=== PATIENT | male | born 1960 | race Caucasian/White ===

== ENCOUNTER 2024-10-20 08:00 | Outpatient (AMB) | payer BC, SELFPAY ==
--- OUTSIDE RECORDS SUMMARY | 2024-10-20 08:03 | XMS_ITS | Clinical Summary ---
Author Organization [facility] Address [address] [place] [address] Care Team Providers Care Talent Associate Name Role Phone Unavailable Primary Care Provider Unavailabl e Social History Tobacco Use Types Packs/Day Years Used Date Smoking Tobacco: Never Assessed Sex and Gender Information Value Date Recorded Sex Assigned at Not on file Legal Sex Male 12:28 AM EDT Gender Identity Not on file Sexual Orientation Not on file Plan of Treatment Health Maintenance Due Date Last Done Comments Hepatitis C Screening 1960 DTaP/Tdap/Td (1 - Tdap) 01/02/1976 Pneumococcal 50+ years (1 of 1 - PCV) 01/02/2008 Zoster (Shingrix) (1 of 2) 01/02/2008 COVID-19 Vaccine ( - 2023-2 5 season) 2024 Influenza (#1) 2024 RSV (1 - 1-dose 75+ series) 2033 Abdominal Aorta Imaging Discontinued HPV Vaccine Aged Out No longer eligi ble based on patient's age to complete this topic Hep A Aged Out No longer eligi ble based on patient's age to complete this topic Hep B Aged Out No longer eligi ble based on patient's age to complete this topic Hib Aged Out No longer eligi ble based on patient's age to complete this topic Meningococcal ACWY Aged Out No longer eligible based on patient's age to complete this topic Zoster (Zostavax) Discontinued
--- NOTE | 2024-10-20 08:05 | A.OFFPC_ITS ---
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 Allergies No Known Allergies Allergy (Verified 10/20/24 08:08) Medication List - Last Reconciled 10/20/24 by Ольга Millard MD amlodipine 10 mg PO DAILY atorvastatin 20 mg PO DAILY hydrochlorothiazide 25 mg PO DAILY lisinopril 30 mg PO DAILY omeprazole 20 mg PO DAILY Tobacco use date assessed: 10/20/24 Fall risk assessment: No Falls in past year Last assessed Fall Risk: 10/20/24 Dental Screening Dental Screen Date: 10/20/24 Did you have a dental visit in the last 12 months?: No Did you have a dental problem in the last 6 months where you did not have access to dental care?: No Was dental information given to patient?: Patient declined HPI 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 Past medical history includes; HTN and hyperlipid, stable on meds PFSH Medical History (Updated 10/20/24 @ 16:33 by Ольга Millard MD) Annual physical exam Smoker HTN (hypertension) Hyperlipidemia Colonoscopy refused Surgical History (Updated 10/20/24 @ 08:47 by Ольга Millard MD) History of ankle surgery Family History (Updated 10/20/24 @ 08:50 by Ольга Millard MD) Father Heart attack, Onset Age: 65 Mother No problems noted. Social History (Updated 10/20/24 @ 08:51 by Ольга Millard MD) Household Members Other:: lives with girlfriend, 2 adult children, 2 grandchildren, retired Housing: House Patient Tobacco Use Status: Current everyday Tobacco user Tobacco use type: Cigarette Cigarette Packs Per Day: 1 Cigarettes Per Day: 20 e-Cigarette/Vaping Use: Never Used service: Yes Current occupational status: employed and retired Cognitive needs: No Hearing needs: No Vision needs: Yes Questionnaire PHQ-9 Over the last 2 weeks, how often have you been bothered by any of the following problems? 1. Little interest or pleasure in doing things: not at all 2. Feeling down, depressed, or hopeless: not at all 3. Trouble falling or staying asleep, or sleeping too much: not at all 4. Feeling tired or having little energy: not at all 5. Poor appetite or overeating: not at all 6. Feeling bad about yourself - or that you are a failure or have let yourself or your family down: not at all 7. Trouble concentrating on things, such as reading the newspaper or watching television: not at all 8. Moving or speaking so slowly that other people could have noticed. Or the opposite - being so fidgety or restless that you have been moving around a lot more than usual: not at all 9. Thoughts that you would be better off or of hurting yourself in some way: not at all Total score: 0 Depression Screening Interpretation: Negative Depression Screening Done: Yes 40496 - PHQ-9 Billing: Yes Source: Developed by Drs. Malcom Lee, Cara Meraz, Joel Watson and colleagues, with an educational zandra from [employer]. Thrive Questionnaire Date Thrive assessed: 10/20/24 I am a: Patient What is your living situation today?: I have a steady place to live Within the past 12 months, did the food you bought not last and you didn't have the money to get more?: Never true Within the past 12 months, did you worry whether your food would run out before you got money to buy more?: Never true Do you have trouble paying for medicines?: No Do you have trouble getting transportation to medical appointments?: No Do you have trouble paying your heating and electricity bill?: No Do you have trouble taking care of your child, family member or friend?: No Do you have trouble with day-to-day activities such as bathing, preparing meals, shopping, managing finances, etc.?: No Are you currently unemployed and looking for a job?: Yes Are you interested in more education?: No Please select the resources that you would like help with: None Currently or been in a relationship where the following occur: No concerns reported THRIVE Score: 0 AUDIT C Alcohol Use Questionnaire (AUDIT-C) 1. How often do you have a drink containing alcohol?: 2-3 times a week 2. How many drinks containing alcohol do you have on a typical day when you are drinking?: 7 to 9 3. How often do you have six or more drinks on one occasion?: Weekly Total Score: 9 DARIN-7 AMB Questionnaire DARIN-7 Date DARIN - 7 assessed: 10/20/24 Feeling nervous, anxious, or on edge: 0 = Not at all Not being able to stop or control worryin = Not at all Worrying too much about different things: 0 = Not at all Trouble relaxin = Not at all Being so restless that it is hard to sit still: 0 = Not at all Becoming easily annoyed or irritable: 0 = Not at all Feeling afraid as if something awful might happen: 0 = Not at all Total DARIN-7 score (0-4 normal; 5-9 mild; 10-14 moderate; 15-21 severe): 0 Source: Developed by Drs. Malcom Lee, Cara Meraz, Joel Watson and colleagues, with an educational zandra from [employer]. DARIN-7 Assessment Billing DARIN-7 Assessment Tool: DARIN-7 Assessment 83838 Review of Systems Const All systems reviewed & are unremarkable except as noted in HPI and below Reports no additional complaints Eyes Reports no additional complaints ENT Reports no additional complaints Card Reports no additional complaints Resp Reports no additional complaints GI Reports no additional complaints Reports no additional complaints Physical exam (Primary Care) Vital Signs: Last Vital Signs Temp 98.2 F 10/20/24 08:08 Pulse 93 10/20/24 08:08 Resp 20 10/20/24 08:08 BP 122/82 10/20/24 08:08 Pulse Ox 98 10/20/24 08:08 Oxygen Delivery Method Room Air 10/20/24 08:08 BMI result Body Mass Index 28.7 Tobacco/Smoking Status: Tobacco use Status Tobacco use date assessed 10/20/24 10/20/24 08:16 Patient Tobacco Use Status Current everyday Tobacco 10/20/24 08:51 Tobacco use type Cigarette 10/20/24 08:51 e-Cigarette/Vaping Use Never Used 10/20/24 08:51 PHQ-9: PHQ-9 Score PHQ-9: Total score 0 10/20/24 08:52 Depression Screening Interpretation: Negative Thrive Assessment: Date of Thrive Assessment Date Thrive assessed 10/20/24 10/20/24 08:16 Currently or been in a relationship where the following occur: No concerns reported Const General: no acute distress HENMT Head: Yes normal to inspection Ears: hearing grossly normal bilaterally Face and sinus: Yes normal facial exam Mouth: Normal oral and palatal mucosa present Throat: Yes posterior oropharynx normal Eyes General: appearance normal, both eyes and all related structures Neck Neck: Yes no lymphadenopathy and Yes supple Resp Effort & Inspection: normal respiratory effort Auscultation: clear to auscultation bilaterally Cardio Rhythm: regular rhythm Heart sounds: S1 normal heart sound present and S2 normal heart sound present GI Inspection: Yes normal to inspection Palpation (GI): Soft to palpation Percussion: Yes normal to percussion Auscultation: normal bowel sounds Coding Level of Care Code New Pt Prev Care >65yr (36252) Diagnoses HTN (hypertension) I10 Hyperlipidemia E78.5 Annual physical exam Z00.00 Smoker F17.200 Additional Codes DARIN-7 Assessment Billing - DARIN-7 Assessment Tool: DARIN-7 Assessment 10871 ([id number]) PHQ-9 - 64509 - PHQ-9 Billing: Yes ([id number]) Assessment & Plan Assessment & Plan (1) HTN (hypertension): Code(s): I10 - Essential (primary) hypertension Category: Medical Plan: Continue amlodipine hydrochlorothiazide and lisinopril, patient will have a fasting blood work today (2) Hyperlipidemia: Code(s): E78.5 - Hyperlipidemia, unspecified Category: Medical Plan: Continue statin (3) Annual physical exam: Code(s): Z00.00 - Encounter for general adult medical examination without abnormal findings Category: Medical Plan: Well-balanced diet regular physical activity discussed with the patient (4) Smoker: Comment: 1 PPD since 10 yr old, in Lung ca screen at [facility] . last 08/2024 Code(s): F17.200 - Nicotine dependence, unspecified, uncomplicated Category: Social Hx Plan: Tobacco quitting discussed with the patient he is not interested, patient will return in 6 months Orders: Orders PSA,Total (Free>4and<10) Today E78.5 - Hyperlipidemia, unspecified, I10 - Essential (primary) hypertension Comprehensive [place]. Panel Fast Today E78.5 - Hyperlipidemia, unspecified, I10 - Essential (primary) hypertension Complete Blood Count Auto Diff Today E78.5 - Hyperlipidemia, unspecified, I10 - Essential (primary) hypertension Lipid Panel Today E78.5 - Hyperlipidemia, unspecified, I10 - Essential (primary) hypertension UA w Microscopic Today E78.5 - Hyperlipidemia, unspecified, I10 - Essential (primary) hypertension
[2024-10-20 08:08] VITALS: BP 122/82; PULSE 93; RESP 20; TEMP 36.8; O2SAT 98; BMI 28.7
== END 2024-10-20 09:01 | disposition home or self-care (01) ==
PROVIDERS: Visit Provider Internal Medicine
DX: I10 Essential (primary) hypertension (principal); E78.5 Hyperlipidemia, unspecified; Z00.00 Encounter for general adult medical examination without abnormal findings; F17.200 Nicotine dependence, unspecified, uncomplicated

== ENCOUNTER 2024-10-20 08:00 | Outpatient (REF) | payer BC, SELFPAY ==
[2024-10-20 13:24] LABS: MANUAL DIFF FLAG NO
[2024-10-20 13:34] LABS: Basophils Absolute Auto 0.1 X10*3/uL (0.0-0.2); Basophils Percent Auto 0.8 % (0-2); Eosinophils Percent Auto 0.4 % (0-4); Hematocrit 41.9 % (42.0-52.0); Hemoglobin 14.9 g/dl (14.0-18.0); Imm Gran Abs Auto 0.03 X10*3/uL (0.00-0.03); Imm Gran Pct Auto 0.4 % (0.0-0.4); Lymphocytes Absolute Auto 1.9 X10*3/uL (1.2-4.9); Lymphocytes Percent Auto 25.2 % (20-40); Mean Corpuscular HGB Conc 35.6 g/dl (31.0-36.0); Mean Corpuscular Hemoglobin 33.3 pg (27.0-33.0); Mean Corpuscular Volume 93.7 fL (80.0-98.0); Mean Platelet Volume 8.8 fL (9.4-12.4); Monocytes Absolute Auto 1.2 X10*3/uL (0.1-1.2); Monocytes Percent Auto 16.1 % (2-11); Neutrophils Absolute Auto 4.2 x10*3/uL (2.0-8.3); Neutrophils Percent Auto 57.1 % (45-73); Platelet Count 487 X10*3/uL (160-400); Red Blood Count 4.47 X10*6/uL (4.60-5.80); Red Cell Distribution Width 13.4 % (11.0-16.0); White Blood Count 7.4 X10*3/uL (4.8-10.8)
[2024-10-20 13:50] LABS: Alanine Aminotransferase 45 U/L (0-40); Albumin Level 4.5 g/dL (3.5-5.0); Alkaline Phosphatase 72 U/L (39-117); Anion Gap 15 (12-20); Aspartate Amino Transferase 54 U/L (5-37); Bilirubin Total 0.7 mg/dL (0.0-1.0); Blood Urea Nitrogen 6 mg/dL (9-16); Calcium 9.6 mg/dL (8.4-10.2); Carbon Dioxide 24 mmol/L (22-29); Chloride 96 mmol/L (96-108); Cholesterol 136 mg/dL (<200); Estimated Glomerular Filt Rate > 60; Glucose Fasting 81 mg/dL (60-99); HDL Cholesterol 69 mg/dL (>40); LDL Cholesterol Calculated 58 mg/dL (<100); Potassium 4.1 mmol/L (3.3-5.1); Sodium 131 mmol/L (135-145); Total Protein 7.9 g/dL (6.5-8.0); Triglycerides 48 mg/dL (<150)
[2024-10-20 14:10] LABS: Appearance Urine Clear; Color Urine Yellow; Glucose Urine UA Negative (Negative); Leukocyte Esterase Urine Negative (Negative); Nitrite Urine Negative (Negative); Urine Blood Negative (Negative); Urine Ketones Negative (Negative); Urine Protein Negative (Neg-Trace)
[2024-10-20 14:17] LABS: PSA,Total (Free>4and<10) 4.15 ng/mL (0.00-4.00)
[2024-10-20 14:40] LABS: Bacteria Urine None Seen (None Seen); Hyaline Casts Urine 0-2 /LPF (0-2); RBC Urine 0-2 /HPF (0-2); Squamous Epithelial Cell Urine 0-2 /HPF (0-2); WBC Urine 0-5 /HPF (0-5)
[2024-10-21 12:29] LABS: Free Prostate Spec Ag 0.4 ng/mL; Percent Free Prostate Spec Ag 12 % (calc) (>25); Prostate Specific Ag Total 3.4 ng/mL (< OR = 4.0)
== END 2024-10-20 08:01 | disposition home or self-care (01) ==
LOC: HO.HMGCLDS 08:00
PROVIDERS: PCP Internal Medicine; Visit Provider Internal Medicine
DX: Z00.00 Encounter for general adult medical examination without abnormal findings (principal); I10 Essential (primary) hypertension; E78.5 Hyperlipidemia, unspecified; F17.210 Nicotine dependence, cigarettes, uncomplicated; Z79.899 Other long term (current) drug therapy; Z12.5 Encounter for screening for malignant neoplasm of prostate
CPT/HCPCS: 36415; 80053; 80061; 81001; 84153; 84154; 85025; 96127

== ENCOUNTER 2025-01-11 07:55 | Outpatient (AMB) | payer MEDICARE, BC, SELFPAY ==
--- OUTSIDE RECORDS SUMMARY | 2025-01-11 07:59 | XMS_ITS | Clinical Summary ---
Author Organization [facility] Address [address] [place] [address] Care Team Providers Care Icebox Worker Name Role Phone Unavailable Primary Care Provider [...] - 2023-2 5 season) 2024 Influenza (#1) 2025 RSV (1 - 1-dose 75+ series) 2033 Abdominal Aorta Imaging Discontinued HPV Vaccine (No Doses Required) Completed Hep A Aged Out No longer eligi [...]
--- OUTSIDE RECORDS SUMMARY | 2025-01-11 07:59 | XMS_ITS | Clinical Summary ---
Author Organization [facility] [address] [facility] Address [address] [place] [address] Phone Care Team Providers Care Traveling Operator Name Role Phone Milana Timmons MD Primary Care Provider [phone] Allergies No known active allergies Medications cyanocobalamin (VITAMIN B-12) 100 mcg tablet Take 0.5 tablets (50 mcg total) by mouth 1 (one) time each day. Active hydroCHLOROthiazide (HYDRODIURIL) 25 mg tabletIndications:E ssential (primary) hypertension TAKE 1 TABLET BY MOUTH EVERY DAY 90 tablet 2 4 Active amLODIPine (NORVASC) 10 mg tabletIndications:E ssential (primary) hypertension TAKE 1 TABLET BY MOUTH EVERY DAY 90 tablet 2 4 Active lisinopriL (PRINIVIL,ZESTRIL) 30 mg tabletIndications:H TN (hypertension), benign Take 1 tablet (30 mg total) by mouth 1 (one) time each day. 90 tablet 2 4 Active atorvastatin (LIPITOR) 20 mg tabletIndications:H yperlipidemia, unspecified hyperlipidemia type Take 1 tablet (20 mg total) by mouth at bedtime. 90 tablet 2 4 Active omeprazole (PriLOSEC) [address] capsuleIndications: Gastroesophageal reflux disease, unspecified whether esophagitis present Take 1 capsule (20 mg total) by mouth 1 (one) time each day. 90 capsule 2 4 Active Active Problems Problem Noted Date Diagnosed Date Vitamin D deficiency 02/19/2022 Pulmonary nodules 06/21/2021 Overview (03/10/2024): LDCT 06/21/2021 Hyperlipidemia 03/03/2020 Overview (03/10/2024): ASCVD 18--started lipitor Macrocytosis without anemia 04/28/2019 Overview (03/10/2024): Will get Vit b12 levels Ankle arthritis 01/04/2019 Tobacco use disorder 06/30/2013 GERD (gastroesophageal reflux disease) 3 ETOH abuse 12/22/2009 HTN (hypertension), benign 04/03/2009 Immunizations Name Administration Dates Next Due COVID-19 (Moderna/Spikevax) 12yo and older 02/13/2023 Influenza Quadravalent, 0.5m l (Fluad) 65yo and older 02/08/2024 Influenza Quadravalent, MDCK , 0.5ml, preservative free (Flucelvax) 6mo and older 02/04/2022,02/10/2020 Influenza trivalent, 0.5mL ( Fluad) 65yo and older 01/19/2024,02/12/2023 Influenza trivalent, 0.5mL, preservative free (Fluarix; FluLaval; Fluzone) ages 6mo and older (Afluria) 3 years and older 02/02/2021,02/10/2019,03/09/2017,03/24 Influenza, Unspecified 02/14/2022,05/09/2021, Moderna (age 6mo & older) Bi valent, COVID-19, 0.5 mL or 0.25 mL dosage 04/01/2022 Cambly SARS-CoV-2 COVID-19, mRNA, LNP-S, preservative free 04/01/2022 Pneumococcal conjugate 20 va lent (Prevnar 20, PCV 20) 2mo and older 10/23/2023 Pneumococcal polysaccharide 23 valent (Pneumovax 23) 2yo and older 05/09/2021,02/02/2021 Td Tetanus diptheria (Tdvax) 7yo and older 04/24/2023 Tdap Tetanus diptheria acell ular pertussis (Boostrix; Adacel) 7yo and older 12/25/2012 Zoster recombinant (Shingrix ) 19yo and older 05/09/2021,04/06/2021,02/02/2021 Surgical History Surgery Date Site/Laterality Comments ANKLE SURGERY Bilateral PROCEDURE: HISTORICAL ANKLE SURGERY; COMMENT: right fusion, left replacement Medical History Medical History Date Comments Tobacco use disorder DX:Tobacco use disorder Ankle fracture - DX:Ankle fractur e; COMMENT: both sides, surgery in the past Fracture, finger DX:Fracture, fi nger; COMMENT: right 3rd Essential hypertension DX:Essent ial hypertension Pulmonary nodules 06/21/2021 DX:Pulmonary n odules; COMMENT: LDCT 06/21/2021 Family History Medical History Relation Name Comments Heart failure Father Relation Name Status Comments Brother Alive Father (Age 62) chf Mother Alive htn, anxiety Sister Alive Social History Tobacco Use Types Packs/Day Years Used Date Smoking Tobacco: Every Day Cigarettes Smokeless Tobacco: Never Tobacco Cessation:Ready to Q uit: Not Asked; Counseling Given: Not Answered Alcohol Use Standard Drinks/Week Comments Yes 25 (1 standard drink = 0.6 oz pu re alcohol) Sex and Gender Information Value Date Recorded Sex Assigned at Male 08/17/2024 2:49 PM EDT Legal Sex Male 9:49 AM EST Gender Identity Not on file Sexual Orientation Not on file Obstetrics History Last Filed Vital Signs Vital Sign Reading Time Taken Comments Blood Pressure 130/76 04/26/2024 8:29 AM EST Pulse 96 04/26/2024 8:29 AM EST Temperature 36.7 C (98 F) 04/26/2024 8:29 AM EST Respiratory Rate - - Oxygen Saturation - - Inhaled Oxygen Concentration - - Weight 91.9 kg (202 lb 9.6 oz) 04/26/2024 8:29 A M EST Height 177.8 cm (5' 10 ) 04/26/2024 8:29 AM EST Body Mass Index 29.07 04/26/2024 8:29 AM EST Plan of Treatment Health Maintenance Due Date Last Done Comments Hepatitis A Vaccines (1 of 2 - Risk 2-dose series) 1979 Colorectal Cancer Screening: Stool Based Tests (FOBT/FIT) 05/04/2022 Medicare Annual Wellness Visit 05/04/2022 Social Influencers of Health Screening 05/04/2022 Falls Risk Assessment 2023 Depression Screening 05/26/2024 10/23/2023 COVID-19 Vaccine ( season) 2024 02/08/2024, 02/03/2024, 02/13/2023, Additional history exists Hypertension/CHF/CAD Annual BMP Blood Test 10/22/2024 10/23/2023, 10/23/2023 Influenza Vaccine (#1) 2025 , 01/19/2024, 02/12/2023, Additional history exists Lung Cancer Screening (Low Dose CT) 08/18/2025 08/18/2024, 08/13/2023, 06/24/2022, Additional history exists Cholesterol Screening (Lipid Panel) 10/22/2028 10/23/2023, 10/23/2023 RSV Immunization Adult Patients (1 - 1-dose 75+ series) 2033 DTaP,Tdap,and Td Vaccines (3 - Td or Tdap) 04/24/2033 04/24/2023, 12/25/2012 Hepatitis C Screening Completed 12/25/2012 Zoster Vaccines Completed 05/09/2021, 03/26, 02/02/2021 Abdominal Aortic Aneurysm (AAA) Screen Completed 05/09/2023, 05/09/2023 Pneumococcal Vaccine: 50+ Years Completed 10/23/2023, 05/09/2021, 02/02/2021 HIB Vaccines Aged Out No longer eligi ble based on patient's age to complete this topic HPV Vaccines Aged Out No longer eligi ble based on patient's age to complete this topic Hepatitis B Vaccines Aged Out No long er eligible based on patient's age to complete this topic IPV Vaccines Aged Out No longer eligi ble based on patient's age to complete this topic MMR Vaccines Aged Out No longer eligi ble based on patient's age to complete this topic Meningococcal ACWY Vaccine Aged Out N o longer eligible based on patient's age to complete this topic Meningococcal B Vaccine Aged Out No l onger eligible based on patient's age to complete this topic RSV Immunization Patients Under 20 months Aged Out No longer eligible based on patient's age to complete this topic Varicella Vaccines Aged Out No longer eligible based on patient's age to complete this topic Procedures Procedure Name Priority Date/Time Associated Diagnosis Comments CT LUNG SCREENING Routine 08/18/2024 7:4 7 AM EDT Encounter for screening for malignant neoplasm of respiratory organs Nicotine dependence, cigarettes, uncomplicated DEPRESSION SCREENING Routine 10/23/2023 ANNUAL BMP BLOOD TEST Routine 10/23/2023 LIPID PANEL Routine 10/23/2023 ABDOMINAL AORTA REAL TIME SCREEN STUDY AAA Routine 05/09/2023 8:59 AM EST Nicotine dependence, unspecified, uncomplicated HEPATITIS C SCREENING Routine 12/25/2012 from Last 3 Months or Most Recently Relevant to Health Maintenance Results * CT Lung Screening (08/18/2024 7:47 AM EDT) Anatomical Region Laterality Modality Chest Computed Tomogra phy 08/20/2024 4:44 PM EDT Impressions 08/20/2024 4:49 PM EDT No new or enlarging pulmonary nodules. Similar gastric wall thickening on multiple studies is nonspecific but is likely due to underdistention. Clinical correlation recommended with upper GI as indicated. Lung RADS 2, recommend low-dose screening chest CT in 12 months -------- FINAL REPORT -------- Dictated By: Ethel Colon Dictated Date: 08/20/2024 16:44 ET Assigned Physician: Ethel Colon Reviewed and Electronically Signed By: Ethel oClon Signed Date: 08/20/2024 16:49 ET Workstation ID: [id number] Transcribed By: Self Edit Transcribed Date: 08/20/2024 16:44 ET Narrative 08/20/2024 4:49 PM EDT INDICATION: Current smoker with 50 pack-year smoking history FINDINGS: Low-dose CT scan of the chest obtained as a lung cancer screening study. Scanner: [employer] speed 64 slice VCT Dose reduction technique: ASIR (Adaptive statistical iterative reconstruction) and/or AEC (automated exposure control) Dose: total exam DLP 119 mGY per cm COMPARISON: Compared to multiple prior studies most recent from August 13, 2023 Lung: No infiltrates or effusions. 2 mm right middle lobe pulmonary nodule on series 3 image 140, unchanged. No new or enlarging pulmonary nodules. Lymph nodes: No thoracic lymphadenopathy. Similar type density within the left axilla, unchanged. Mediastinum: Trachea and esophagus are within normal limits. Mild central bronchial wall thickening. Heart normal in size and shape without pericardial effusion. Mediastinal vascular structures are normal in course and caliber. Bony structures: Within normal limits for the patient's age. Similar gastric wall thickening on multiple studies is nonspecific but is likely due to underdistention. Clinical correlation recommended with upper GI as indicated. Procedure Note Ethel Colon MD - 08/20/2024 INDICATION: Current smoker with 50 pack-year smoking history FINDINGS: Low-dose CT scan of the chest obtained as a lung cancerscreening study. Scanner: [employer] speed 64 slice VCT Dose reduction technique: ASIR (Adaptive statistical iterativereconstruction) and/or AEC (automated exposure control) Dose: total exam DLP 119 mGY per cm COMPARISON: Compared to multiple prior studies most recent from July Lung: No infiltrates or effusions. 2 mm right middle lobe pulmonary nodule on series 3 image 140,unchanged. No new or enlarging pulmonary nodules. Lymph nodes: No thoracic lymphadenopathy. Similar type density within theleft axilla, unchanged. Mediastinum: Trachea and esophagus are within normal limits. Mild centralbronchial wall thickening. Heart normal in size and shape withoutpericardial effusion. Mediastinal vascular structures are normal in courseand caliber. Bony structures: Within normal limits for the patient's age. Similar gastric wall thickening on multiple studies is nonspecific but islikely due to underdistention. Clinical correlation recommended with upperGI as indicated. IMPRESSION: No new or enlarging pulmonary nodules. Similar gastric wall thickening on multiple studies is nonspecific but islikely due to underdistention. Clinical correlation recommended with upperGI as indicated. Lung RADS 2, recommend low-dose screening chest CT in 12 months -------- FINAL REPORT -------- Dictated By: Ethel Colon Dictated Date: 08/20/2024 16:44 ET Assigned Physician: Ethel Colon Reviewed and Electronically Signed By: Ethel Colon Signed Date: 08/20/2024 16:49 ET Workstation ID: [id number] Transcribed By: Self Edit Transcribed Date: 08/20/2024 16:44 ET Result [facility] Teofilo Antunez MD IMG CT PROCEDURES Final Result * Annual BMP Blood Test (10/23/2023) Annual BMP Blood Test Abstracted Historical Provider HEALTH MAINTENANCE Final Result * Depression Screening (10/23/2023) Pathologist [facility] Depression Screening Abstracted Result [facility] Provider HEALTH MAINTENANCE Final Result * Lipid panel (10/23/2023) [facility] LDL/HDL Ratio 2 0 - 4 Triglycerides 73 0 - 150 mg/dL Cholesterol 154 0 - 200 mg/dL HDL 80 >=40 mg/dL LDL Cholesterol 60 0 - 100 mg/dL Blood Venous blood specimen / Unknown Result [facility] Provider LAB BLOOD ORDERABLES Keke l Result * US ABDOMINAL AORTA REAL TIME SCREEN STUDY AAA (05/09/2023 8:59 AM EST) Anatomical Region Laterality Modality Ultrasound 04/24/2023 8:39 AM EST Narrative 05/09/2023 1:49 PM EST Ultrasound of the abdominal aorta. History screening for AAA. No prior studies are available for comparison. There is no evidence of abdominal aortic aneurysm. Proximal aorta measures 2.7 cm, mid aorta measures 2.2 cm, distal aorta measures 1.6 cm. Proximal common right iliac artery measures 1.1 cm, proximal left common iliac artery measures 1.3 cm. CONCLUSIONS: No evidence of AAA. Procedure Note Dilcia Montesinos MD - 07/01/2023 Ultrasound of the abdominal aorta. History screening for AAA. No prior studies are available for comparison. There is no evidence of abdominal aortic aneurysm. Proximal aortameasures 2.7 cm, mid aorta measures 2.2 cm, distal aorta measures 1.6 cm. Proximal common rightiliac artery measures 1.1 cm, proximal left common iliac artery measures 1.3 cm. CONCLUSIONS: No evidence of AAA. 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
--- NOTE | 2025-01-11 08:09 | A.OFFVIS_ITS ---
Intake Visit Reasons: elevated psa Intake Note: New patient presents today for initial visit for elevated PSA * 10/20: Total PSA: 4.15 * Free:0.4 Urology Medication:None Blood Thinner:None Antibiotic Allergies:None Allergies No Known Allergies Allergy (Verified 01/11/25 10:02) Medication List - Last Reconciled 01/11/25 by MARIELENA Caraballo amlodipine 10 mg PO DAILY atorvastatin 20 mg PO DAILY hydrochlorothiazide 25 mg PO DAILY lisinopril 30 mg PO DAILY omeprazole 20 mg PO DAILY HPI Comments Details: Cortez is a very pleasant 65-year-old male patient of Dr. Millard. He has a past medical history of nicotine dependence, hypertension, and hyperlipidemia. He presents to the office today as a new patient for an elevated PSA. In discussion with the patient today he reports having followed up with his new PCP and having blood work performed at which time he was noted to have an elevated PSA and recommendations were made for urology referral for further assessment evaluation. Recent PSA results reviewed with the patient today as noted and trended below: PSA: 10/17 4.2 % free PSA 12% When asked he denies any known family history of prostate cancer. He denies any bothersome urinary issues. He does report getting up 2 times per night however does not find this bothersome. He denies urinary urgency, urinary frequency, incontinence, hematuria, dysuria, foul smelling urine, changes to urinary stream, flank pain, fever, and or chills. He is happy with his current voiding parameters. We did discussed at length potential causes of elevated PSA as well as further treatment options and risks and benefits of these treatment options. LIBBY was performed smooth; no nodules or masses palpated. He denies having been told he had an elevated PSA in the past. [facility] Medical History Annual physical exam Smoker HTN (hypertension) Hyperlipidemia Colonoscopy refused Surgical History History of ankle surgery Family History Father Heart attack, Onset Age: 65 Mother No problems noted. Social History Household Members Other:: lives with girlfriend, 2 adult children, 2 grandchildren, retired Housing: House Patient Tobacco Use Status: Current everyday Tobacco user Tobacco use type: Cigarette Cigarette Packs Per Day: 1 Cigarettes Per Day: 20 e-Cigarette/Vaping Use: Never Used service: Yes Current occupational status: employed and retired Cognitive needs: No Hearing needs: No Vision needs: Yes Review of Systems Const All systems reviewed & are unremarkable except as noted in HPI and below Physical Exam Const General: cooperative, healthy appearing, comfortable, no acute distress, well developed, alert and awake Orientation/consciousness: patient oriented x3 Limitations: no limitations HEENT Head: Yes normal to inspection, Yes normocephalic and Yes atraumatic Ears: hearing grossly normal bilaterally Eyes General: appearance normal, both eyes and all related structures Neck Neck: Yes normal visual inspection and Yes trachea midline Chest Chest palpation & inspection: normal inspection of the chest Resp Effort & Inspection: normal respiratory effort and able to speak in complete sentences Cardio Rate: regular rate GI Inspection: Yes normal to inspection General: Yes no CVA tenderness Back/Spine/Pelvis Back: no CVA tenderness Skin General skin exam: no rashes or lesions noted Neuro General: patient oriented x3 Extrem General: Yes normal to inspection Psych Appearance: grossly normal and well kempt Mental Status: mental status grossly normal Speech and movement: Normal speech and movement present and Clear speech present Affect: normal affect Attitude: cooperative Thought process: Normal thought process present Thought content: Normal thought content present Insight: Fair insight present (Psych) Judgement: Fair judgement present (Psych) Assessment & Plan Assessment & Plan (1) Elevated PSA: Code(s): R97.20 - Elevated prostate specific antigen [PSA] Category: Medical Plan In office urinalysis results reviewed with the patient today; as noted above. We discussed potential causes of elevated PSA as well as further treatment options and risks and benefits of these treatment options. LIBBY was performed. We discussed obtaining redraw of PSA with no sex the night before, no caffeine morning of, and no heavy lifting 1-2 days prior. Will obtain retroperitoneal ultrasound for further assessment evaluation. All questions were answered. Follow-up in 1-2 months with imaging and labs; or sooner with any issues, concerns, and or questions. Orders: Orders US retroperitoneal comp Today R97.20 - Elevated prostate specific antigen [PSA] PSA,Total (Free>4and<10) Today R97.20 - Elevated prostate specific antigen [PSA] Patient Instructions: The patient had an opportunity to ask questions regarding the treatment plan. All questions were answered. Physical exam, labs, and imaging were discussed and reviewed in detail. As well as risks, benefits, and discussion of treatment choices. No major barriers to understanding were identified. The patient expressed understanding and agreement with the above treatment plan. The patient was made aware they should contact our office by phone for worsening of their current condition, the appearance of new symptoms, or with any questions or concerns. Compliance is encouraged with any medications and follow up testing that is ordered. It is a privilege to be allowed the opportunity to participate in? your urological care.? Again, if you have any questions or concerns If you have any questions or concerns please do not hesitate to contact me. The office is [phone]. This note is constructed using voice recognition software. While every effort has been made to ensure accuracy corporate sales representative errors may have been included. Yours sincerely, MARIELENA Caraballo Coding Level of Care Code New Pt Level 3 (13300) Diagnoses Elevated PSA R97.20
== END 2025-01-11 08:42 | disposition home or self-care (01) ==
LOC: HO.HUSH 07:56
PROVIDERS: PCP Internal Medicine; Visit Provider Nurse Practitioner Family
DX: Z13.9 Encounter for screening, unspecified (principal); R97.20 Elevated prostate specific antigen [PSA]
CPT/HCPCS: 99203

== ENCOUNTER → 2025-01-11 07:55 | Outpatient (BNVA) | payer MEDICARE, BC, SELFPAY | PROVIDERS: PCP Internal Medicine; Visit Provider Nurse Practitioner Family | DX: R97.20 Elevated prostate specific antigen [PSA] (principal) | CPT/HCPCS: 81003; 99202 ==

== ENCOUNTER 2025-02-11 08:22 | Outpatient (REF) | payer MEDICARE, BC, SELFPAY ==
--- OUTSIDE RECORDS SUMMARY | 2025-02-11 08:53 | XMS_ITS | Clinical Summary ---
Author Organization [facility] [address] [facility] Address [address] [place] [address] Phone Care Team Providers Care Daily Sales Audit Clerk Name Role Phone Ольга Millard MD Primary Care Provider [phone] Allergies No known active allergies Medications cyanocobalamin [...] 0.5 mL or 0.25 mL dosage 04/01/2022 Scytl SARS-CoV-2 COVID-19, mRNA, LNP-S, preservative free 04/01/2022 [...] Risk Assessment 2023 Depression Screening 05/26/2024 10/23/2023 Hypertension/CHF/CAD Annual BMP Blood Test 10/22/2024 10/23/2023, 10/23/2023 COVID-19 Vaccine ( season) 2025 02/08/2024, 02/03/2024, 02/13/2023, Additional history exists Influenza Vaccine (#1) 2025 , 01/19/2024, 02/12/2023, [...] Signed Date: 08/20/2024 16:49 ET Workstation ID: [id number] Transcribed By: Self Edit Transcribed Date: 08/20/2024 16:44 ET Narrative 08/20/2024 4:49 PM EDT INDICATION: Current smoker with 50 pack-year smoking history FINDINGS: Low-dose CT scan of the chest obtained as a lung cancer screening study. Scanner: [employer] speed 64 slice VCT Dose reduction technique: [...] obtained as a lung cancerscreening study. Scanner: [employer] speed 64 slice VCT Dose reduction technique: [...] Signed Date: 08/20/2024 16:49 ET Workstation ID: [id number] Transcribed By: Self Edit Transcribed Date: 08/20/2024 16:44 ET Result [facility] Teofilo Antunez MD IMG CT PROCEDURES Final Result * Annual BMP Blood Test (10/23/2023) Annual BMP Blood Test Abstracted Historical Provider HEALTH MAINTENANCE Final Result * Depression Screening (10/23/2023) Pathologist [facility] Depression Screening Abstracted [facility] Provider HEALTH MAINTENANCE Final Result * Lipid panel (10/23/2023) [facility] LDL/HDL Ratio 2 0 - 4 Triglycerides 73 0 - 150 mg/dL Cholesterol 154 0 - 200 mg/dL HDL 80 >=40 mg/dL LDL Cholesterol 60 0 - 100 mg/dL Blood Venous blood specimen / Unknown Result [facility] Historical Provider LAB BLOOD ORDERABLES Keke l Result [...] (12/25/2012) Hepatitis C Screening Abstracted Historical Provider MD HEALTH MAINTENANCE Final Result from Last 3 Months or Most Recently Relevant to Health Maintenance Insurance [facility] AETNA MEDICARE ADVANTAGE Advance Directives Documents on File Type Date Recorded 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
--- OUTSIDE RECORDS SUMMARY | 2025-02-11 08:53 | XMS_ITS | Clinical Summary ---
Author Organization [facility] Address [address] [place] [address] Care Team Providers Care Manufacturing Engineering Professor Name Role Phone Unavailable Primary Care Provider [...] COVID-19 Vaccine ( - 2023-2 5 season) 2025 Influenza (#1) 2025 RSV (1 - 1-dose [...]
[2025-02-11 11:25] LABS: PSA,Total (Free>4and<10) 10.93 ng/mL (0.00-4.00)
== END 2025-02-11 08:23 | disposition home or self-care (01) ==
LOC: HO.HMGCLDS 08:22
PROVIDERS: PCP Internal Medicine; Visit Provider Nurse Practitioner Family
DX: R97.20 Elevated prostate specific antigen [PSA] (principal); Z12.5 Encounter for screening for malignant neoplasm of prostate
CPT/HCPCS: 36415; 84153

== ENCOUNTER 2025-02-23 08:49 | Outpatient (REF) | payer MEDICARE, BC, SELFPAY ==
--- NOTE | ~2025-02-23 | US_ITS ---
CLINICAL HISTORY: R97.20 - Elevated prostate specific antigen [PSA] US Renal Comparison: None provided Findings: Right kidney normal size and echotexture, 12.4 cm length. Left kidney normal size and echotexture, 11.9 cm length. No collecting system dilatation of either kidney. Normal color Doppler. Urinary bladder is unremarkable. Prevoid volume 320 mL. Postvoid volume 117 mL. Bilateral ureteral jets are visualized. The prostate gland measures 5.0 x 5.0 x 4.2 cm with a volume of 55 mL. IMPRESSION: 1. Moderate postvoid residual. This document has been electronically signed by: Jaiden Hdz MD on 02/23/2025 18:32:47
--- OUTSIDE RECORDS SUMMARY | 2025-02-23 09:24 | XMS_ITS | Clinical Summary ---
Author Organization [facility] [address] [facility] Address [address] [place] [address] Phone Care Team Providers Care Hot Roller Name Role Phone Ольга Millard MD Primary Care Provider Allergies No known active allergies Medications cyanocobalamin [...] abuse 12/22/2009 HTN (hypertension), benign 04/03/2009 Immunizations Immunization Administration Dates Next Due COVID-19 (Moderna/Spikevax) 10yo [...] 0.5 mL or 0.25 mL dosage 04/01/2022 [employer]ix SARS-CoV-2 COVID-19, mRNA, LNP-S, preservative free 04/01/2022 [...] -------- FINAL REPORT -------- Dictated By: Ethel oClon Dictated Date: 08/20/2024 16:44 ET Assigned Physician: Ethel Colon Reviewed and Electronically Signed By: Ethel Colon Signed Date: 08/20/2024 16:49 ET Workstation ID: [id number] Transcribed By: Self Edit Transcribed Date: 08/20/2024 16:44 ET Narrative 08/20/2024 4:49 PM EDT INDICATION: Current smoker with 50 pack-year smoking history FINDINGS: Low-dose CT scan of the chest obtained as a lung cancer screening study. Scanner: Nixon speed 64 slice VCT Dose reduction technique: [...] obtained as a lung cancerscreening study. Scanner: Nixon speed 64 slice VCT Dose reduction technique: [...] Signed Date: 08/20/2024 16:49 ET Workstation ID: [id number] Transcribed By: Self Edit Transcribed Date: 08/20/2024 16:44 ET Result [facility] Teofilo Antunez MD IMG CT PROCEDURES Final Result * Annual BMP Blood Test (10/23/2023) Annual BMP Blood Test Abstracted Historical Provider HEALTH MAINTENANCE Final Result * Depression Screening (10/23/2023) Pathologist [facility] Depression Screening Abstracted [facility] Provider HEALTH MAINTENANCE Final Result * Lipid panel (10/23/2023) [facility] LDL/HDL Ratio 2 0 - 4 Triglycerides 73 0 - 150 mg/dL Cholesterol 154 0 - 200 mg/dL HDL 80 >=40 mg/dL LDL Cholesterol 60 0 - 100 mg/dL Blood Venous blood specimen / Unknown Result [facility] Historical Provider LAB BLOOD ORDERABLES Keke l [...] Most Recently Relevant to Health Maintenance Insurance [facility] AETNA MEDICARE ADVANTAGE Advance Directives Documents on File Type Date Recorded Patient Med Spa Manager Expl anation Health Care Decision (hx) 08/01/2009 AD HORTON DIRECTIVE Health Care Decision (hx) 08/01/2009 AD HORTON DIRECTIVE Health Care Decision (hx) 08/01/2009 AD HORTON DIRECTIVE Health Care Decision (hx) 08/01/2009 AD HORTON DIRECTIVE Health Care Decision (hx) 08/01/2009 AD CLIFFORD DIRECTIVE Care Teams Hot Roller Relationship Specialty Start Date End Date Ольга Millard MD [address] [place] [id number] PCP - General Internal Medicine 01/12/25
--- OUTSIDE RECORDS SUMMARY | 2025-02-23 09:24 | XMS_ITS | Clinical Summary ---
Author Organization [facility] Address [address] [place] [address] Care Team Providers Care Manager Drilling Name Role Phone Unavailable Primary Care Provider [...]
== END 2025-02-23 08:50 | disposition home or self-care (01) ==
LOC: HO.HMGCX 08:49
PROVIDERS: PCP Internal Medicine; Visit Provider Nurse Practitioner Family
DX: R97.20 Elevated prostate specific antigen [PSA] (principal)
CPT/HCPCS: 76770

== ENCOUNTER → 2025-02-23 08:56 | Outpatient (BNV) | payer MEDICARE, BC, SELFPAY | PROVIDERS: PCP Internal Medicine; Visit Provider Specialist | DX: R33.8 Other retention of urine (principal); R97.20 Elevated prostate specific antigen [PSA] | CPT/HCPCS: 76770 ==

== ENCOUNTER 2025-03-03 07:16 | Outpatient (AMB) | payer MEDICARE, BC, SELFPAY ==
--- NOTE | 2025-03-03 07:16 | A.OFFVIS_ITS ---
Intake Visit Reasons: 2m/US/PSA Intake Note: patient presents today for Telehealth visit for elevated PSA Labs done 02/11/25 : Total PSA 10.93 Imaging: Retroperitoneum Ultrasound 02/23/2025 Urology Medication:None Blood Thinner:None Antibiotic Allergies:None Accompanied by: Self / Same As Patient Allergies No Known Allergies Allergy (Verified 03/03/25 08:09) Medication List - Last Reconciled 03/03/25 by KIA CaraballoP- amlodipine 10 mg PO DAILY atorvastatin 20 mg PO DAILY hydrochlorothiazide 25 mg PO DAILY lisinopril 30 mg PO DAILY omeprazole 20 mg PO DAILY HPI Comments Details: Cortez is a very pleasant 65-year-old male patient of Dr. Millard. He has a past medical history of nicotine dependence, hypertension, and hyperlipidemia. He is being followed up on today via video telehealth for his el evated PSA. Of note, patient was seen approximately 2 months ago as a new patient for an elevated PSA at which time a LIBBY was performed and noted to be within normal limits and recommendations were made for redraw of PSA as well as a retroperitoneal ultrasound. These results were reviewed and communicated with the patient today. 03/19 bilateral kidneys are normal in size and echotexture. No collecting system dilatation of either kidney. The urinary bladder is unremarkable. Prostate gland measures an estimated volume of 55 mL. We did discussed significant increase in PSA. When asked he denies any bothersome urinary issues. When asked he denies any known family history of prostate cancer. He does report getting up 2 times per night however does not find this bothersome. He denies urinary urgency, urinary frequency, incontinence, hematuria, dysuria, foul smelling urine, changes to urinary stream, flank pain, fever, and or chills. He is happy with his current voiding parameters. We did discussed at length potential causes of elevated PSA as well as further treatment options and risks and benefits of these treatment options. PCPT risk calculator results were reviewed 63% chance that prostate biopsy is negative for cancer, 23% chance of low-grade prostate cancer, and 14% chance of high-grade prostate cancer. Recent PSA results reviewed with the patient today as noted and trended below: PSA: 10/17 4.2 % free PSA 12%, 02/17 10.9 All questions were answered. He otherwise offers no other issues or concerns at this time. [facility] Medical History Annual physical exam Smoker HTN (hypertension) Hyperlipidemia Colonoscopy refused Surgical History History of ankle surgery Family History Father Heart attack, Onset Age: 65 Mother No problems noted. Social History Household Members Other:: lives with girlfriend, 2 adult children, 2 grandchildren, retired Housing: House Patient Tobacco Use Status: Current everyday Tobacco user Tobacco use type: Cigarette Cigarette Packs Per Day: 1 Cigarettes Per Day: 20 e-Cigarette/Vaping Use: Never Used service: Yes Current occupational status: employed and retired Cognitive needs: No Hearing needs: No Vision needs: Yes Review of Systems Const All systems reviewed & are unremarkable except as noted in HPI and below Physical Exam Const General: cooperative, healthy appearing, comfortable, no acute distress, well developed, alert and awake Orientation/consciousness: patient oriented x3 Resp Effort & Inspection: normal respiratory effort and able to speak in complete sentences Neuro General: patient oriented x3 Psych Appearance: grossly normal and well kempt Speech and movement: Clear speech present Attitude: cooperative Thought content: Normal thought content present Insight: Fair insight present (Psych) Judgement: Fair judgement present (Psych) Telehealth Telehealth Telehealth Platform: [facility] Location of provider rendering services: practice address Location of patient: address on file Patient Identification confirmed using: Name, : Yes Telehealth method: video Patient verbally consented to treatment: Yes Patient verbally consented to billing insurance company: Yes Patient informed of any privacy concerns related to visit: Yes Minutes spent on Phone/Video with Pt.: 20 Results Reviewed Results Reviewed: Date of Service: 02/23/25 Procedure(s): US retroperitoneal comp Findings: Right kidney normal size and echotexture, 12.4 cm length. Left kidney normal size and echotexture, 11.9 cm length. No collecting system dilatation of either kidney. Normal color Doppler. Urinary bladder is unremarkable. Prevoid volume 320 mL. Postvoid volume 117 mL. Bilateral ureteral jets are visualized. The prostate gland measures 5.0 x 5.0 x 4.2 cm with a volume of 55 mL. IMPRESSION: 1. Moderate postvoid residual. Assessment & Plan Assessment & Plan (1) Elevated PSA: Code(s): R97.20 - Elevated prostate specific antigen [PSA] Category: Medical Plan: Plan Risks and benefits regarding trans rectal ultrasound with prostate biopsy were discussed.? Options of continued surveillance, no treatment and biopsy were offered. The risks include but are not limited to, urinary tract infection, sepsis, difficulty urinating, bleeding into the rectum or bladder that requires intervention and transfusion,and failure to diagnose prostate cancer. The patient understands the options and the risks involved. They wish to proceed. Printed information was provided to ensure he remains off anticoagulation for the appropriate length of time. He may require cardiology or PCP clearance.? An antibiotic will be administered prior to, and following the procedure Plan Recent PSA results reviewed with the patient today; as noted above. Recent retroperitoneal ultrasound results reviewed with the patient today; as noted above. We did discuss increase in PSA as well as further treatment options and risks and benefits of these treatment options. All questions were answered. We discussed prostate biopsy; risks and benefits; as noted above. Prescription provided for antibiotic therapy; we discussed importance of taking medication as prescribed. He currently denies any bothersome urinary issues or concerns. He reports be happy with current voiding parameters. Will schedule for prostate biopsy Follow-up per doctor's orders; or sooner with any issues, concerns, and or questions. Orders: Orders Biopsy - Core needle Today R97.20 - Elevated prostate specific antigen [PSA] Medications: New levofloxacin take 1 tablet day before procedure, 1 tablet day of procedure and 1 tablet day after procedure 500 mg PO DAILY 3 tabs 0RF 3 days Patient Instructions: The patient had an opportunity to ask questions regarding the treatment plan. All questions were answered. Physical exam, labs, and imaging were discussed and reviewed in detail. As well as risks, benefits, and discussion of treatment choices. No major barriers to understanding were identified. The patient expressed understanding and agreement with the above treatment plan. The patient was made aware they should contact our office by phone for worsening of their current condition, the appearance of new symptoms, or with any questions or concerns. Compliance is encouraged with any medications and follow up testing that is ordered. It is a privilege to be allowed the opportunity to participate in? your urological care.? Again, if you have any questions or concerns If you have any questions or concerns please do not hesitate to contact me. The office is [phone]. This note is constructed using voice recognition software. While every effort has been made to ensure accuracy semiconductor package symbol stamper errors may have been included. Yours sincerely, MARIELENA Caraballo Coding Level of Care Code Tele Est Pt Level 4 (49295) Diagnoses Elevated PSA R97.20
== END 2025-03-03 08:18 | disposition home or self-care (01) ==
LOC: HO.HUSH 07:16
PROVIDERS: PCP Internal Medicine; Visit Provider Nurse Practitioner Family
DX: R97.20 Elevated prostate specific antigen [PSA] (principal)
CPT/HCPCS: 99214

== ENCOUNTER 2025-04-05 07:37 | Outpatient (REF) | payer BC, MEDICARE, SELFPAY ==
--- OUTSIDE RECORDS SUMMARY | 2025-04-05 07:40 | XMS_ITS | Clinical Summary ---
Author Organization [facility] Address [address] [place] [address] Care Team Providers Care Dinkey Operator Slag Name Role Phone Unavailable Primary Care Provider [...] of 2) 01/02/2008 COVID-19 Vaccine ( - 2024-2 6 season) 2025 Influenza (#1) 2025 RSV (1 [...]
--- OUTSIDE RECORDS SUMMARY | 2025-04-05 07:40 | XMS_ITS | Clinical Summary ---
Author Organization [facility] [address] [facility] Address [address] [place] [address] Phone Care Team Providers Care Guitar Teacher Name Role Phone Ольга Millard MD Primary Care Provider [phone] Allergies No known active allergies Medications cyanocobalamin [...] trivalent, 0.5mL ( Fluad) 65yo and older 02/10/2025,01/19/2024,02/12/2023 Influenza trivalent, 0.5mL, preservative free (Fluarix; FluLaval; Fluzone) ages 6mo and older (Afluria) 3 years and older 02/02/2021,02/10/2019,03/09/2017,03/24 Influenza, Unspecified 02/14/2022,05/09/2021, Moderna (age 6mo & older) Bi valent, COVID-19, 0.5 mL or 0.25 mL dosage 04/01/2022 Pfizer (ages 12 & older) CRISTINE S-CoV-2 COVID-19, mRNA, LNP-S, norma-sucrose, preservative free 02/10/2025 Pfizer SARS-CoV-2 COVID-19, mRNA, LNP-S, preservative free 04/01/2022 [...] 10/23/2023, 10/23/2023 COVID-19 Vaccine ( season) 2025 02/10/2025, 02/08/2024, 02/03/2024, Additional history exists Lung Cancer Screening (Low [...] Vaccine: 50+ Years Completed 10/23/2023, 05/09/2021, 02/02/2021 Influenza Vaccine Completed 02/10/2025, , 01/19/2024, Additional history exists HIB Vaccines Aged Out No longer eligi [...] TEST Routine 10/23/2023 LIPID PANEL Routine 10/23/2023 US ABDOMINAL AORTA REAL TIME SCREEN STUDY [...] Signed Date: 08/20/2024 16:49 ET Workstation ID: [id number] Transcribed By: Self Edit Transcribed Date: 08/20/2024 16:44 ET Narrative 08/20/2024 4:49 PM EDT INDICATION: Current smoker with 50 pack-year smoking history FINDINGS: Low-dose CT scan of the chest obtained as a lung cancer screening study. Scanner: GE Bright speed 64 slice VCT Dose reduction technique: [...] obtained as a lung cancerscreening study. Scanner: PhoneFusion Bright speed 64 slice VCT Dose reduction technique: [...] Signed Date: 08/20/2024 16:49 ET Workstation ID: [id number] Transcribed By: Self Edit Transcribed Date: 08/20/2024 16:44 ET Teofilo Antunez MD IMG CT PROCEDURES Final Result * Annual BMP Blood Test (10/23/2023) Pathologist [facility] Annual BMP Blood Test Abstracted Historical Provider HEALTH MAINTENANCE Final Result * Depression Screening (10/23/2023) [facility] Depression Screening Abstracted Historical Provider HEALTH MAINTENANCE Final Result * Lipid panel (10/23/2023) [facility] LDL/HDL Ratio 2 0 - 4 Triglycerides 73 0 - 150 mg/dL Cholesterol 154 0 - 200 mg/dL HDL 80 >=40 mg/dL LDL Cholesterol 60 0 - 100 mg/dL Blood Venous blood specimen / Unknown Result [facility] Historical Provider LAB BLOOD ORDERABLES Keke [...] C Screening (12/25/2012) Hepatitis C Screening Abstracted us Historical Provider MD HEALTH MAINTENANCE Final Result from Last 3 Months or Most Recently Relevant to Health Maintenance Insurance [facility] AETNA MEDICARE ADVANTAGE Advance Directives Documents on File Type Date Recorded 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
[2025-04-05] MEDS: Lidocaine HCl 1 % MPF 5 ML VIAL 10 ML SUBCUT (08:50)
--- NOTE | 2025-04-05 08:53 | P.OP_ITS ---
Operative Note Operative Note Date of Service: 04/05/25 Narrative: Preoperative diagnosis: Elevated PSA Postoperative diagnosis: Elevated PSA Procedure: 1. transrectal ultrasound measurement of prostate 2. transrectal ultrasound-guided pudendal nerve block 3. transrectal ultrasound-guided prostate biopsy 12 core Surgeon: Dr. David Olivares Anesthetic: 10cc 1% lidocaine Indications for procedure: Elevated PSA - 11.0 Counselling: Technical aspects, risks and benefits of proposed procedure were discussed in full. All questions have been answered, written consent has been obtained and patient agrees to proceed. Procedure: The patient was brought into the procedure area and placed in a left lateral decubitus position. Patient identity confirmed. Perioperative antibiotics confirmed. Safety pause time out performed. LIBBY was performed to dilate rectal sphincter Iodine 10cc with 60 cc gel was placed per rectum to reduce infection risk using a catheter tip syringe. 8 Hz Brent rectal end-fire ultrasound probe was placed transrectally without difficulty. The prostate was visualized. Seminal vesicles were normal. Prostate margins were clearly demarcated. Bladder was seen superiorly. No cystic structures were noted Yes calcifications were noted at the surgical margin The prostate was otherwise homogeneous in nature The prostate was measured in 3 dimensions Prostatic Width: 4 cm Prostatic Height: 4 cm Urethral Length: 4 cm Total volume equals : 45 ml An ultrasound-guided pudendal nerve block was performed using a 22 gauge spinal needle in the sagittal plane. 4 cc of 1% lidocaine placed at the junction of each seminal vesicle and 2 cc placed at the apex of the prostate. A 12 core biopsy was performed with 6 cores each side using an 18 gauge prostate biopsy gun. Two cores each were taken at the prostate apex, mid and base on each side. Cores were spaced between lateral and medial aspects. Each core was examined as placed on specimen foam as part of quality control industrial engineer to ensure a minimum 1 cm of length and minimal discontinuity. He tolerated the procedure well with minimal rectal bleeding. Blood pressure remained stable following procedure. He was able to ambulate to bathroom after 5 minutes. Printed instructions regarding antibiotic use and common adverse events from the procedure such as low-grade temperature, potential infection and bleeding were given. He understands to call the office or go to an emergency room should any of these events arise. Pathology: 12 core prostate biopsy. CPT code 18883: Transrectal ultrasound; this is a diagnostic test for evaluation of the prostate and surrounding structures, looking for abnormalities or suspicious areas worrisome for cancer CPT code 75001: Biopsy, prostate; needle or punch, single or multiple, any approach CPT code 45384: Ultrasonic guidance for needle placement (eg, biopsy, aspiration, injection, localization device), imaging supervision and interpretation
== END 2025-04-05 07:38 | disposition home or self-care (01) ==
LOC: HO.US 07:37
PROVIDERS: PCP Internal Medicine; Visit Provider Urology
DX: R97.20 Elevated prostate specific antigen [PSA] (principal)
CPT/HCPCS: 55700; 76942; 88305; 88342; J2003

== ENCOUNTER → 2025-04-05 07:37 | Outpatient (BNV) | payer BC, MEDICARE, SELFPAY | PROVIDERS: PCP Internal Medicine; Visit Provider Urology | DX: R97.20 Elevated prostate specific antigen [PSA] (principal) | CPT/HCPCS: 55700; 76872; 76942 ==

== ENCOUNTER 2025-04-25 08:53 | Outpatient (AMB) | payer MEDICARE, BC, SELFPAY ==
--- NOTE | 2025-04-25 09:04 | A.OFFPC_ITS ---
Vital Signs 04/25/25 09:05 Height 5 ft 10 in Weight 202 lb BMI 29.0 BP 120/80 Blood Pressure Location Rt brachial Position Sitting Respiration 18 Pulse 94 Pulse Source Pulse Oximeter Temp 98.1 F Temp Source Oral Pulse Oximetry (%) 96 Oxygen Delivery Method Room Air Intake Visit Reasons: 6m f/u Intake Note: Pt is here today for 6 months follow up visit. Allergies No Known Allergies Allergy (Verified 04/25/25 09:08) Medication List - Last Reconciled 04/25/25 by Ольга Millard MD amlodipine 10 mg PO DAILY atorvastatin 20 mg PO DAILY hydrochlorothiazide 25 mg PO DAILY levofloxacin 500 mg PO DAILY 3 days lisinopril 30 mg PO DAILY omeprazole 20 mg PO DAILY Tobacco use date assessed: 04/25/25 Fall risk assessment: No Falls in past year Last assessed Fall Risk: 04/25/25 Dental Screening Dental Screen Date: 10/20/24 HPI 6m f/u HPI Details Patient presents for the follow-up on hypertension hyperlipidemia controlled on current medications. He had a prostate biopsy last month and has a follow-up appointment with Urology to discuss the results. Patient continues to smoke a pack a day and is not interested in quitting. He is established with lung cancer screening program at [facility] Medical History (Updated 04/25/25 @ 09:26 by Ольга Millard MD) Elevated PSA Annual physical exam Smoker HTN (hypertension) Hyperlipidemia Colonoscopy refused Surgical History History of ankle surgery Family History Father Heart attack, Onset Age: 65 Mother No problems noted. Social History Household Members Other:: lives with girlfriend, 2 adult children, 2 gran dchildren, retired Housing: House Patient Tobacco Use Status: Current everyday Tobacco user Tobacco use type: Cigarette Cigarette Packs Per Day: 1 Cigarettes Per Day: 20 e-Cigarette/Vaping Use: Never Used service: Yes Current occupational status: employed and retired Cognitive needs: No Hearing needs: No Vision needs: Yes Questionnaire Thrive Questionnaire Date Thrive assessed: 10/20/24 I am a: Patient What is your living situation today?: I have a steady place to live Within the past 12 months, did the food you bought not last and you didn't have the money to get more?: Never true Within the past 12 months, did you worry whether your food would run out before you got money to buy more?: Never true Do you have trouble paying for medicines?: No Do you have trouble getting transportation to medical appointments?: No Do you have trouble paying your heating and electricity bill?: No Do you have trouble taking care of your child, family member or friend?: No Do you have trouble with day-to-day activities such as bathing, preparing meals, shopping, managing finances, etc.?: No Are you currently unemployed and looking for a job?: Yes Are you interested in more education?: No Please select the resources that you would like help with: None Currently or been in a relationship where the following occur: No concerns reported THRIVE Score: 0 DARIN-7 AMB Questionnaire DARIN-7 Date DARIN - 7 assessed: 10/20/24 Source: Developed by Drs. Malcom Lee, Cara Meraz, Joel Watson and colleagues, with an educational zandra from [employer]. Review of Systems Const All systems reviewed & are unremarkable except as noted in HPI and below Eyes Reports no additional complaints ENT Reports no additional complaints Card Reports no additional complaints Resp Reports no additional complaints GI Reports no additional complaints Reports no additional complaints Physical exam (Primary Care) Vital Signs: Last Vital Signs Temp 98.1 F 04/25/25 09:05 Pulse 94 04/25/25 09:05 Resp 18 04/25/25 09:05 BP 120/80 04/25/25 09:05 Pulse Ox 96 04/25/25 09:05 Oxygen Delivery Method Room Air 04/25/25 09:05 BMI result Body Mass Index 29.0 Tobacco/Smoking Status: Tobacco use Status Tobacco use date assessed 04/25/25 04/25/25 09:10 Patient Tobacco Use Status Current everyday Tobacco 04/25/25 09:05 Tobacco use type Cigarette 04/25/25 09:05 e-Cigarette/Vaping Use Never Used 04/25/25 09:05 Thrive Assessment: Date of Thrive Assessment Date Thrive assessed 10/20/24 04/25/25 09:05 Currently or been in a relationship where the following occur: No concerns reported Const General: no acute distress HENMT Head: Yes normal to inspection Eyes General: appearance normal, both eyes and all related structures Resp Effort & Inspection: normal respiratory effort Auscultation: diminished lung sounds Cardio Rhythm: regular rhythm Heart sounds: S1 normal heart sound present and S2 normal heart sound present GI Inspection: Yes normal to inspection Palpation (GI): Soft to palpation Coding Level of Care Code Complex visit Add On G2211 Diagnoses HTN (hypertension) I10 Hyperlipidemia E78.5 Elevated PSA R97.20 Assessment & Plan Assessment & Plan (1) HTN (hypertension): Code(s): I10 - Essential (primary) hypertension Category: Medical Plan: Continue current medications (2) Hyperlipidemia: Code(s): E78.5 - Hyperlipidemia, unspecified Category: Medical Plan: Continue statin (3) Elevated PSA: Comment: s/p prostate biopsy 04/19 Code(s): R97.20 - Elevated prostate specific antigen [PSA] Category: Medical Plan: Follow-up with urology Orders: Orders Comprehensive [place]. Panel Fast Today E78.5 - Hyperlipidemia, unspecified, I10 - Essential (primary) hypertension Complete Blood Count Auto Diff Today E78.5 - Hyperlipidemia, unspecified, I10 - Essential (primary) hypertension Lipid Panel Today E78.5 - Hyperlipidemia, unspecified, I10 - Essential (primary) hypertension
[2025-04-25 09:05] VITALS: BP 120/80; PULSE 94; RESP 18; TEMP 36.7; O2SAT 96; BMI 29.0
--- OUTSIDE RECORDS SUMMARY | 2025-04-25 10:01 | XMS_ITS | Clinical Summary ---
Author Organization [facility] [address] [facility] Address [address] [place] [address] Phone Care Team Providers Care B2B Sales Executive Name Role Phone Ольга Millard MD Primary Care Provider [phone] Allergies No known active allergies Medications cyanocobalamin [...] Signed Date: 08/20/2024 16:49 ET Workstation ID: [id number] Transcribed By: Self Edit Transcribed Date: 08/20/2024 [...] obtained as a lung cancerscreening study. Scanner: Snapflow Bright speed 64 slice VCT Dose reduction [...] Date: 08/20/2024 16:44 ET Assigned Physician: Ethel oClon Reviewed and Electronically Signed By: Ethel Colon Signed Date: 08/20/2024 16:49 ET Workstation ID: [id number] Transcribed By: Self Edit Transcribed Date: 08/20/2024 16:44 ET Teofilo Antunez MD IMG CT PROCEDURES Final Result * Annual BMP Blood Test (10/23/2023) Pathologist [facility] Annual BMP Blood Test Abstracted Historical Provider HEALTH MAINTENANCE Final Result * Depression Screening (10/23/2023) [facility] Depression Screening Abstracted Historical Provider HEALTH MAINTENANCE Final Result * Lipid panel (10/23/2023) [facility] LDL/HDL Ratio 2 0 - 4 Triglycerides 73 0 - 150 mg/dL Cholesterol 154 0 - 200 mg/dL HDL 80 >=40 mg/dL LDL Cholesterol 60 0 - 100 mg/dL Blood Venous blood specimen / Unknown Result [facility] Historical Provider LAB BLOOD ORDERABLES [...] Most Recently Relevant to Health Maintenance Insurance [facility] AETNA MEDICARE ADVANTAGE Advance Directives Documents on File Type Date Recorded 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
--- OUTSIDE RECORDS SUMMARY | 2025-04-25 10:01 | XMS_ITS | Clinical Summary ---
Author Organization [facility] Address [address] [place] [address] Care Team Providers Care Manager Stars Name Role Phone Unavailable Primary Care Provider [...]
== END 2025-04-25 09:30 | disposition home or self-care (01) ==
LOC: HO.HMCC 08:54
PROVIDERS: PCP Internal Medicine; Visit Provider Internal Medicine
DX: I10 Essential (primary) hypertension (principal); E78.5 Hyperlipidemia, unspecified; R97.20 Elevated prostate specific antigen [PSA]

== ENCOUNTER 2025-04-25 08:53 | Outpatient (REF) | payer MEDICARE, BC, SELFPAY ==
[2025-04-25 13:27] LABS: MANUAL DIFF FLAG NO
[2025-04-25 13:45] LABS: Hematocrit 43.7 % (42.0-52.0); Hemoglobin 15.0 g/dl (14.0-18.0); Imm Gran Abs Auto 0.02 X10*3/uL (0.00-0.03); Imm Gran Pct Auto 0.3 % (0.0-0.4); Lymphocytes Absolute Auto 2.0 X10*3/uL (1.2-4.9); Mean Corpuscular HGB Conc 34.3 g/dl (31.0-36.0); Mean Corpuscular Hemoglobin 33.0 pg (27.0-33.0); Mean Corpuscular Volume 96.0 fL (80.0-98.0); NRBC Abs Auto 0.000 X10*3/uL (0.0-0.012); NRBC Pct Auto 0.0 /100WBC (0.0-0.2); Platelet Count 496 X10*3/uL (160-400); Red Blood Count 4.55 X10*6/uL (4.60-5.80); White Blood Count 6.9 X10*3/uL (4.8-10.8)
[2025-04-25 13:46] LABS: Alanine Aminotransferase 38 U/L (0-40); Albumin Level 4.6 g/dL (3.5-5.0); Alkaline Phosphatase 80 U/L (39-117); Anion Gap 12 (12-20); Aspartate Amino Transferase 40 U/L (5-37); Blood Urea Nitrogen 11 mg/dL (9-16); Calcium 9.8 mg/dL (8.4-10.2); Carbon Dioxide 27 mmol/L (22-29); Chloride 100 mmol/L (96-108); Cholesterol 143 mg/dL (<200); Estimated Glomerular Filt Rate > 60; HDL Cholesterol 66 mg/dL (>40); Potassium 3.7 mmol/L (3.3-5.1); Sodium 135 mmol/L (135-145); Total Protein 7.7 g/dL (6.5-8.0); Triglycerides 69 mg/dL (<150)
== END 2025-04-25 08:54 | disposition home or self-care (01) ==
LOC: HO.HMGCLDS 08:53
PROVIDERS: PCP Internal Medicine; Visit Provider Internal Medicine
DX: I10 Essential (primary) hypertension (principal); E78.5 Hyperlipidemia, unspecified; R97.20 Elevated prostate specific antigen [PSA]
CPT/HCPCS: 36415; 80053; 80061; 85025; 99212

== ENCOUNTER 2025-04-27 08:24 | Outpatient (AMB) | payer MEDICARE, BC, SELFPAY ==
--- NOTE | 2025-04-27 08:24 | A.OFFVIS_ITS ---
Intake Visit Reasons: Prostate biopsy results(set) Intake Note: Reason for Visit: Prostate Biopsy Results Urology Meds: None Blood Thinners: Non Imaging: None Labs: PSA 10.93 02/11/2025 Pathology: Biopsy 04/05/2025 Director Of Business Systems Required: No Accompanied by: Self / Same As Patient Allergies No Known Allergies Allergy (Verified 04/27/25 08:24) HPI Comments Details: Trista is a pleasant male. He is a patient of Dr. Millard. He is seen for the following urologic conditions - elevated PSA - prostate cancer Telemedicine Evaluation 15 min Consultation [employer] Discussed result Single core positive Primary grade 4 Recommend prostate MRI in 4 weeks, PET-CT per NCCN guidelines for unfavorable intermediate disease, Prolaris genetics Prostate cancer - ultra low volume, grade group 3 prostate cancer PSA: 10/17 4.2 % free PSA 12%, 02/17 10.9 Bladder ultrasound 55 g prostate TRUS 50 g PT1c 1 out of 12 cores Histologic type: Adenocarcinoma, acinar type Histologic grade: Roby score: 4+3=7 % of pattern 4: 80% Grade group: 3 Tumor quantitation: Number cores positive: 1 Total number of cores: 12 % of tissue involved: 7% of all tissue examined - Right mid lateral: Prostatic adenocarcinoma, Roby score 4+3=7 (grade group 3), involving 80% of the core Periprostatic fat inv.: Not identified Seminal vesicle inv.: Not identified Perineural inv.: Present LVI: Not identified [facility] Medical History (Updated 04/27/25 @ 09:55 by David Olivares MD) Elevated PSA Annual physical exam Smoker HTN (hypertension) Hyperlipidemia Colonoscopy refused Surgical History (Updated 04/27/25 @ 08:25 by Hailey Cole Theresa) History of prostate biopsy History of ankle surgery Family History Father Heart attack, Onset Age: 65 Mother No problems noted. Social History Household Members Other:: lives with girlfriend, 2 adult children, 2 grandchildren, retired Housing: House Patient Tobacco Use Status: Current everyday Tobacco user Tobacco use type: Cigarette Cigarette Packs Per Day: 1 Cigarettes Per Day: 20 e-Cigarette/Vaping Use: Never Used service: Yes Current occupational status: employed and retired Cognitive needs: No Hearing needs: No Vision needs: Yes Review of Systems Const All systems reviewed & are unremarkable except as noted in HPI and below Reports no additional complaints Resp Reports no additional complaints GI Reports no additional complaints Reports as per HPI Musc Reports no additional complaints Physical Exam Telemedicine evaluation Appropriate responses Regular breathing rate and rhythm HEENT Head: Yes normal to inspection Ears: hearing grossly normal bilaterally Eyes General: appearance normal, both eyes and all related structures Neck Neck: Yes normal visual inspection Chest Chest palpation & inspection: normal inspection of the chest Resp Effort & Inspection: normal respiratory effort and able to speak in complete sentences Telehealth Telehealth Telehealth Platform: Telephone Location of provider rendering services: practice address Location of patient: address on file Patient Identification confirmed using: Name, : Yes Telehealth method: voice only Patient verbally consented to treatment: Yes Patient verbally consented to billing insurance company: Yes Patient informed of any privacy concerns related to visit: Yes Assessment & Plan Assessment & Plan (1) 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 While every effort has been made to ensure accuracy executive assistant errors may have been included. Imaging studies, laboratory and physical exam results were discussed and reviewed in detail. No major barriers to patient understanding were identified. An opportunity to ask questions regarding the treatment plan was provided. All questions were answered. The patient expressed understanding and agreement with the above treatment plan. The patient is aware they should contact our office by phone for worsening of their current condition or the appearance of new urologic symptoms. Compliance is encouraged with any medications and followup testing that is ordered. It is a privilege to participate in the urologic care of your patient. If you have any questions or concerns regarding treatment for the above conditions, or other urologic issues, please do not hesitate to contact me. The office telephone contact is [phone]. Sincerely, Dr David Olivares MD, [facility] - Urology Compassionate Specialist Care for the Genitourinary System Coding Level of Care Code Tele Est Pt Level 3 (27630) Diagnoses Hormone sensitive prostate cancer C61; Z19.1
--- OUTSIDE RECORDS SUMMARY | 2025-04-27 08:33 | XMS_ITS | Clinical Summary ---
Author Organization [facility] [address] [facility] Address [address] [place] [address] Phone Care Team Providers Care Water Quality Technician Name Role Phone Ольга Millard MD Primary Care Provider [phone] Allergies No known active allergies Medications cyanocobalamin [...] Signed Date: 08/20/2024 16:49 ET Workstation ID: [id number] Transcribed By: Self Edit Transcribed Date: 08/20/2024 [...] obtained as a lung cancerscreening study. Scanner: [employer] Bright speed 64 slice VCT Dose reduction [...] Colon Reviewed and Electronically Signed By: Ethel Cloon Signed Date: 08/20/2024 16:49 ET Workstation ID: [id number] Transcribed By: Self Edit Transcribed Date: 08/20/2024 16:44 ET Teofilo Antunez MD IMG CT PROCEDURES Final Result * Annual BMP Blood Test (10/23/2023) Pathologist [facility] Annual BMP Blood Test Abstracted Historical Provider HEALTH MAINTENANCE Final Result * Depression Screening (10/23/2023) [facility] Depression Screening Abstracted Historical Provider HEALTH MAINTENANCE Final Result * Lipid panel (10/23/2023) [facility] LDL/HDL Ratio 2 0 - 4 Triglycerides 73 0 - 150 mg/dL Cholesterol 154 0 - 200 mg/dL HDL 80 >=40 mg/dL LDL Cholesterol 60 0 - 100 mg/dL Blood Venous blood specimen / Unknown Result [facility] Historical Provider LAB BLOOD ORDERABLES Keke [...] Most Recently Relevant to Health Maintenance Insurance [facility] AETNA MEDICARE ADVANTAGE Advance Directives Documents on File Type Date Recorded Patient Cam Specialist Expl anation Health Care Decision (hx) 08/01/2009 AD HORTON DIRECTIVE Health Care Decision (hx) 08/01/2009 AD HORTON DIRECTIVE Health Care Decision (hx) 08/01/2009 AD HORTON DIRECTIVE Health Care Decision (hx) 08/01/2009 AD HORTON DIRECTIVE Health Care Decision (hx) 08/01/2009 AD HORTON DIRECTIVE Care Teams Water Quality Technician Relationship Specialty Start Date End Date Ольга Millard MD [address] [place] [id number] PCP - General Internal Medicine 01/12/25
== END 2025-04-27 10:43 | disposition home or self-care (01) ==
LOC: HO.HUSH 08:24
PROVIDERS: PCP Internal Medicine; Visit Provider Urology
DX: C61 Malignant neoplasm of prostate (principal); Z19.1 Hormone sensitive malignancy status
CPT/HCPCS: 99213